=== PATIENT | female | born 1975 | race Caucasian/White ===

== ENCOUNTER 2024-09-10 10:56 | Outpatient (CLI) | payer BC, SELFPAY ==
--- NOTE | ~2024-09-10 | CT_ITS ---
EXAMINATION: CT sinus wo con DATE: 09/10/2024 11:08 INDICATION: Chronic sinusitis, unspecified. TECHNIQUE: Computed tomography (CT) of the paranasal sinuses was performed without intravenous contra st. Iterative reconstruction technique was employed. The dose-length product was 382.89 mGy-cm. COMPARISON: None FINDINGS: There is mucosal thickening in the frontal recesses. There is moderate mucosal thickening i n the ethmoid sinuses and maxillary sinuses. There is dependent fluid in left maxillary sinus. The sp henoid sinuses are clear. There is leftward deviation of the nasal septum with a left lateral spur. R ight middle turbinate is paradoxical. There is pneumatization of the vertical lamina of right middle turbinate. The ostiomeatal units are occluded. IMPRESSION: 1. Mucosal thickening in the paranasal sinuses with occluded ostiomeatal units. 2. Leftward deviation of the nasal septum. Reviewed, dictated and finalized at location A. [employer]
== END 2024-09-10 10:57 | disposition home or self-care (01) ==
LOC: GOSHIMG 10:57
PROVIDERS: PCP Nurse Practitioner; Visit Provider Nurse Practitioner
DX: J32.9 Chronic sinusitis, unspecified (principal)
CPT/HCPCS: 70486